=== PATIENT | female | born 1980 | race Asian ===

== ENCOUNTER 2025-06-19 15:27 | Emergency (ER) | payer SELFPAY ==
--- NOTE | 2025-06-19 16:59 | ED.MUSCINJ ---
HPI-Injury
General
Chief Complaint: Musculo-Skeletal Complaint
Source: patient
Exam Limitations: none
Time Seen by Provider: 06/19/25 15:54
Nursing documentation reviewed up to this point in time: agreed with
History of Present Illness-Injury
Is this injury a work related problem?: Yes
Is pt an associate of [facility]/[place]?: No
Initial Injury comments:
Patient to the emergency department for evaluation of left lower extremity pain swelling and bruising. She states that approximately 2 weeks ago a pegboard fell hitting patient on her left lower leg. She sustained bruising and swelling to her leg
from below knee to her foot. She reports most pain is at the left lateral ankle. States pain is not improving. She was advised by her employer to come to the emergency department for evaluation.
Past History
Past History
ED Past Medical History: Other, Other and Other (Migraine headaches)
ED Past Surgical History:
Social History
Tobacco: Non-smoker
Alcohol: Occasional (Rare EtOH)
Drug: None
Personal:
Living: with family
Employment: Employed
Family History
Family History: Other (Noncontributory); Negative Early CAD
Review of Systems
Review of Systems
Allergies reviewed?: Yes
All Other Systems: ROS reviewed and negative except as documented in HPI and ROS
Constitutional: Reports no symptoms
Musculoskeletal: Reports joint pain (Pain to left lower extremity, most painful left lateral ankle.)
Skin: Reports other (Bruising and swelling to left lower extremity)
Neurological: Reports no symptoms
Psychiatric: Reports no symptoms
Musculoskeletal Injury Exam
Musculoskeletal Injury Exam
Left Lower Leg:
Pain with Movement?: Moderate
Tender to palpation?: Moderate
Soft tissue swelling?: Moderate
External deformity and angulation?: None
Joint effusion?: None
Contusion?: Moderate
Hematoma-local bleeding into tissue?: Moderate
Strain- Sprain- Tear (Connective tissue injury)?: Moderate
Crepitus with movement?: No
Joint instability?: No
Malalignment/deformity?: No
Range of motion: Limited
Distal skin color and temperature: normal-warm & good color
Capillary Refill: normal
Normal distal neurovascular exam?: Yes
Peripheral Pulses: posterior tibial (left): 3+ and dorsalis pedis (left): 3+
Phy Exam
General Physical Exam
General Presentation: well appearing and mild distress
General age: appears stated age
General Skin: warm and dry
General Habitus: normal
General Mental: alert
Skin Exam
Skin Exam: normal color, warm/dry, no rash and other (Bruising and swelling to left lower leg)
Psychiatric Exam
Psychiatric Exam: normal mood/affect
Injury Course
Orders/Labs/Results
Orders:
Orders
06/19/25 15:36
Ankle, left 3 view CR [CR Ankle - Left Min 3 Views ] Urgent
Comment:
Reason For Exam: injury
06/19/25 15:37
Periph Venous Lwr Ext Left US [US Periph Venous LOWER Ext LT] Urgent
Comment:
Reason For Exam: swelling
06/19/25 16:57
Ortho Boot Left- Treatment ONCE
Short or tall?: Tall
*Radiology
Radiology exam reviewed: radiology read reviewed
*Pulse Oximetry
Patient hypoxic: no
*Critical Care Note
Total Time (30-74mins, 75-104mins- exclusive of procedures): Not Applicable
Update Note
Update Note:
Patient to the emergency department for evaluation of ongoing left lower extremity pain. She states approximately 2 weeks ago she was hit by a pegboard while at work. She sustained bruising and swelling to her left lower extremity but states her
symptoms have not improved over the course of 2 weeks. She reports most pain to the left lateral ankle. X-rays were reviewed. Radiology report of suspected distal fibula nondisplaced subtle fracture. Discussed these findings with her. She was
placed in an orthopedic boot. She will be discharged home and is instructed to follow-up with orthopedics. She was instructed to follow-up with orthopedics through her [employer] provider. She was provided with name and number of on-call
orthopedics to follow-up with as needed.
ED Attending Note
-
Portions of this chart may have been created with voice recognition software.� Occasional wrong word or��sound alike� substitutions may have occurred due to the inherent limitations of voice recognition software.
Discharge Plan
Departure
Patient Disposition: Home (Routine Discharge)
Date of Disposition: 06/19/25
Time of Disposition: 16:57
Patient with high blood pressure during this ER visit?: No
Condition: Good
Covid-19: Not Applicable
Discharge Problem:
Fracture of distal end of left fibula
Instructions: Ankle Fracture (DC), Ibuprofen, Using Cold for Pain
Prescriptions:
No Action
[id number] 1 TABLET tablet
1 tab PO PRN PRN (Reason: headache)
Referrals:
Otilia Bello I., DO [Active, Orthopedics] - Call in 1-3 days for appt
Interventions
Interventions:
*Risk Screen - Suicide Last Done: 06/19/25 15:31
*General Assessment Last Done: 06/19/25 15:31
*Neglect/Abuse Screening Last Done: 06/19/25 15:31
*ED COVID-19 Vaccine History Last Done: 06/19/25 15:31
*ED Influenza Vaccine History Last Done: 06/19/25 15:31
*Nursing Disposition Last Done: 06/19/25 17:35
ED-Musculoskeletal Assessment Last Done: 06/19/25 16:26
Discharge Date and Time
Discharge Date/Time: 06/19/25 17:48
Print Language: CYMRO
== END 2025-06-19 17:48 | disposition home or self-care (01) ==
LOC: EMR 15:27
PROVIDERS: EMERGENCY PHYSICIAN Student in an Organized Health Care Education/Training Program
DX: S82.832A Other fracture of upper and lower end of left fibula, initial encounter for closed fracture (principal); W20.8XXA Other cause of strike by thrown, projected or falling object, initial encounter; Y99.0 Civilian activity done for income or pay
CPT/HCPCS: 99284; 73610; 93971